=== PATIENT | female | born 1975 | race Caucasian/White ===

== ENCOUNTER 2018-11-15 19:15 | Inpatient (IN) ==
[2018-11-15 20:09] LABS: Basophils # 0.1 10*3/uL (0.0-0.2); Basophils % 0.4 % (0.0-0.8); Eosinophils # 0.1 10*3/uL (0.0-0.87); Eosinophils % 0.7 % (0.00-10.9); Hematocrit 34.2 VOL% (35.7-47.0); Hemoglobin 11.5 GM/DL (12.0-16.0); Immature Granulocytes % 0.7 %; Lymphocytes # 0.5 10*3/uL (1.4-4.0); Lymphocytes % 3.3 % (21.3-54.2); Mean Corpuscular HGB Conc 33.6 GM/DL (32-36); Mean Corpuscular Hemoglobin 31 PG (27-34); Mean Corpuscular Volume 93.2 FL (87-102); Mean Platelet Volume 10.1 FL (9.6-12.0); Monocytes # 0.7 10*3/uL (0.11-0.8); Monocytes % 4.9 % (1.7-12.7); Neutrophils # 13.3 10*3/uL (1.4-7.4); Platelet Count 250 T/CUMM (130-400); Red Blood Count 3.67 MC/CUMM (3.8-5.5); Red Cell Distribution Width 14.3 % (9.3-17.3); White Blood Count 14.8 T/CUMM (4-12)
[2018-11-15 20:17] LABS: Apearance,Urine CLOUDY (Clear); Bacteria,Urine Many /HPF (Few); Bilirubin,Urine Negative (Negative); Blood, Urine Moderate mg/dL (Negative); Glucose,Urine (UA) Negative (Negative); Ketones,Urine Negative (Negative); Mucus,Urine Few /LPF (Occasional); Nitrite,Urine Negative (Negative); Protein,Urine 100 MG/DL; RBC,Urine 67 /HPF (0-4); Urine Color Yellow (Yellow); Urine Specific Gravity 1.012 (1.001-1.035); Urine Urobilinogen < 2.0 EU/DL (0.2-1.0); WBC,Urine 1071 /HPF (0-6)
[2018-11-15 20:27] LABS: Albumin 3.3 G/DL (3.4-5.0); Bilirubin,Total 0.4 MG/DL (0.2-1.0); Osmolality,Calculated 270.1 MOS/KG (273-304); Potassium 3.4 MMOL/L (3.5-5.1); Total Protein 7.4 G/DL (6.4-8.3)
[2018-11-15] MEDS ORDERED: VANCOMYCIN INJ 1,000 MG in SODIUM CHLORIDE 0.9% 250 ML IV STA (20:40)
[2018-11-15] MEDS ORDERED: CEFEPIME 2,000 MG in SODIUM CHLORIDE 0.9% 100 ML IV STA (20:40)
[2018-11-15] MEDS ORDERED: KETOROLAC 30 MG/1 ML VIAL IV STA (20:40)
[2018-11-15] MEDS ORDERED: SODIUM CHLORIDE 0.9% 1,000 ML IV STA ×2 (20:41)
[2018-11-15] MEDS ORDERED: CEFEPIME 2,000 MG VIAL ONE (20:44)
[2018-11-15] MEDS ORDERED: ONDANSETRON 4 MG/2 ML VIAL IV PRN (22:04)
[2018-11-16] MEDS: SODIUM CHLORIDE 0.9% 1,000 ML IV SCH ×2 (01:26→09:58)
[2018-11-16] MEDS ORDERED: SODIUM CHLORIDE 0.9% 500 ML IV ONE (04:16)
[2018-11-16 06:47] LABS: Basophils % 0.3 % (0.0-0.8); Eosinophils # 0.1 10*3/uL (0.0-0.87); Eosinophils % 1.2 % (0.00-10.9); Hematocrit 28.2 VOL% (35.7-47.0); Hemoglobin 9.1 GM/DL (12.0-16.0); Immature Granulocytes % 1.1 %; Immature Granulocytes Absolute 0.13 #; Lymphocytes # 1.1 10*3/uL (1.4-4.0); Lymphocytes % 9.4 % (21.3-54.2); Mean Corpuscular HGB Conc 32.3 GM/DL (32-36); Mean Corpuscular Hemoglobin 31 PG (27-34); Mean Corpuscular Volume 95.6 FL (87-102); Mean Platelet Volume 10.1 FL (9.6-12.0); Monocytes # 0.5 10*3/uL (0.11-0.8); Platelet Count 173 T/CUMM (130-400); Red Blood Count 2.95 MC/CUMM (3.8-5.5); Red Cell Distribution Width 14.4 % (9.3-17.3)
[2018-11-16 07:28] LABS: Albumin 2.4 G/DL (3.4-5.0); Bilirubin,Total 0.8 MG/DL (0.2-1.0); Calcium 7.4 MG/DL (8.5-10.1); Potassium 3.3 MMOL/L (3.5-5.1); Total Protein 5.4 G/DL (6.4-8.3)
[2018-11-16] MEDS ORDERED: POTASSIUM CHLORIDE 20 MEQ TABLET PO ONE (08:22)
[2018-11-16] MEDS: MEROPENEM 1,000 MG in SODIUM CHLORIDE 0.9% 100 ML IV SCH ×2 (08:56→20:25)
[2018-11-16] MEDS: PANTOPRAZOLE 40 MG TABLET PO SCH (08:57)
[2018-11-16] MEDS: POTASSIUM CHLORIDE INJ 20 MEQ in LACTATED RINGERS 1,000 ML IV SCH ×2 (09:55→20:24)
[2018-11-16] MEDS: LUBIPROSTONE 24 MCG CAPSULE PO SCH (16:32)
[2018-11-16] MEDS: ACETAMINOPHEN 500 MG TABLET PO PRN (17:14)
[2018-11-17] MEDS: ACETAMINOPHEN 500 MG TABLET PO PRN ×2 (02:02→17:46)
[2018-11-17] MEDS ORDERED: IBUPROFEN 600 MG TABLET PO PRN (03:20)
[2018-11-17] MEDS: POTASSIUM CHLORIDE INJ 20 MEQ in LACTATED RINGERS 1,000 ML IV SCH ×3 (03:37→17:47)
[2018-11-17 04:36] LABS: Basophils % 0.2 % (0.0-0.8); Eosinophils # 0.1 10*3/uL (0.0-0.87); Eosinophils % 1.9 % (0.00-10.9); Hematocrit 24.8 VOL% (35.7-47.0); Hemoglobin 8.2 GM/DL (12.0-16.0); Immature Granulocytes % 0.5 %; Immature Granulocytes Absolute 0.03 #; Lymphocytes # 0.5 10*3/uL (1.4-4.0); Lymphocytes % 7.5 % (21.3-54.2); Mean Corpuscular HGB Conc 33.1 GM/DL (32-36); Mean Corpuscular Hemoglobin 31 PG (27-34); Mean Corpuscular Volume 93.9 FL (87-102); Mean Platelet Volume 10.8 FL (9.6-12.0); Monocytes # 0.1 10*3/uL (0.11-0.8); Monocytes % 1.6 % (1.7-12.7); Neutrophils # 5.5 10*3/uL (1.4-7.4); Neutrophils % 88.3 % (38.7-73.9); Platelet Count 158 T/CUMM (130-400); Red Blood Count 2.64 MC/CUMM (3.8-5.5); Red Cell Distribution Width 14.6 % (9.3-17.3); White Blood Count 6.2 T/CUMM (4-12)
[2018-11-17 05:00] LABS: Calcium 7.9 MG/DL (8.5-10.1); Osmolality,Calculated 281.4 MOS/KG (273-304); Potassium 4.3 MMOL/L (3.5-5.1)
[2018-11-17 06:29] LABS: Band Neutrophils 1 % (0-10); Eosinophils 2 % (0-10); Lymphocytes 13 % (20-55); Segmented Neutrophils 83 % (50-85); Total Cells Counted 100
[2018-11-17 06:30] LABS: Microcytosis Slight; Ovalocytes 1+; Platelet Estimate Normal
[2018-11-17] MEDS ORDERED: MAGNESIUM SULF RIDER 4 GM in PREMIX 1 EACH IV ONE (07:45)
[2018-11-17] MEDS: PANTOPRAZOLE 40 MG TABLET PO SCH (08:53)
[2018-11-17] MEDS: LUBIPROSTONE 24 MCG CAPSULE PO SCH (09:00)
[2018-11-17] MEDS ORDERED: VANCOMYCIN INJ 750 MG in SODIUM CHLORIDE 0.9% 250 ML IV SCH (09:00)
[2018-11-17] MEDS: MEROPENEM 1,000 MG in SODIUM CHLORIDE 0.9% 100 ML IV SCH ×2 (10:17→20:17)
[2018-11-17] MEDS: SODIUM BICARB INJ 150 MEQ in STERILE WATER INJ 850 ML IV SCH ×2 (11:54→17:17)
[2018-11-17] MEDS ORDERED: cefTRIAXone 2,000 MG in SYRINGE 1 EACH IV SCH (12:00)
[2018-11-17] MEDS ORDERED: SODIUM BICARB INJ 150 MEQ in STERILE WATER INJ 850 ML IV SCH (17:15)
[2018-11-17] MEDS ORDERED: IBUPROFEN 600 MG TABLET PO ONE (20:05)
[2018-11-17] MEDS ORDERED: ACETAMINOPHEN 500 MG TABLET PO SCH (23:00)
[2018-11-17] MEDS: ACETAMINOPHEN 500 MG TABLET PO SCH (23:37)
[2018-11-18] MEDS: POTASSIUM CHLORIDE INJ 20 MEQ in LACTATED RINGERS 1,000 ML IV SCH ×5 (05:23→21:25)
[2018-11-18] MEDS: ACETAMINOPHEN 500 MG TABLET PO SCH ×3 (05:44→17:04)
[2018-11-18 06:14] LABS: Basophils % 0.3 % (0.0-0.8); Eosinophils # 0.3 10*3/uL (0.0-0.87); Eosinophils % 3.3 % (0.00-10.9); Hematocrit 24.1 VOL% (35.7-47.0); Hemoglobin 8.1 GM/DL (12.0-16.0); Immature Granulocytes % 0.6 %; Immature Granulocytes Absolute 0.05 #; Lymphocytes # 1.2 10*3/uL (1.4-4.0); Lymphocytes % 15.2 % (21.3-54.2); Mean Corpuscular HGB Conc 33.6 GM/DL (32-36); Mean Corpuscular Hemoglobin 31 PG (27-34); Mean Platelet Volume 11.3 FL (9.6-12.0); Monocytes # 0.3 10*3/uL (0.11-0.8); Monocytes % 4.3 % (1.7-12.7); Neutrophils # 6.1 10*3/uL (1.4-7.4); Neutrophils % 76.3 % (38.7-73.9); Platelet Count 121 T/CUMM (130-400); Red Blood Count 2.62 MC/CUMM (3.8-5.5); Red Cell Distribution Width 14.6 % (9.3-17.3)
[2018-11-18 06:39] LABS: Albumin 1.8 G/DL (3.4-5.0); Bilirubin,Total 0.5 MG/DL (0.2-1.0); Calcium 7.7 MG/DL (8.5-10.1); Potassium 3.9 MMOL/L (3.5-5.1); Total Protein 4.9 G/DL (6.4-8.3)
[2018-11-18] MEDS ORDERED: COSYNTROPIN 0.25 MG VIAL IV ONE (08:00)
[2018-11-18] MEDS: MEROPENEM 1,000 MG in SODIUM CHLORIDE 0.9% 100 ML IV SCH ×2 (08:19→21:29)
[2018-11-18] MEDS ORDERED: fentaNYL 100 MCG/2 ML VIAL IV ONE (09:10)
[2018-11-18] MEDS ORDERED: MIDAZOLAM 2 MG/2 ML VIAL IV ONE (09:10)
[2018-11-18] MEDS: LUBIPROSTONE 24 MCG CAPSULE PO SCH (11:44)
[2018-11-18] MEDS: PANTOPRAZOLE 40 MG TABLET PO SCH (11:44)
[2018-11-18] MEDS ORDERED: DIAZEPAM 5 MG TABLET PO ONE (12:00)
[2018-11-18] MEDS ORDERED: MIDAZOLAM 2 MG/2 ML VIAL ONE (13:12)
[2018-11-18] MEDS ORDERED: fentaNYL 100 MCG/2 ML VIAL ONE (13:12)
[2018-11-19] MEDS: ACETAMINOPHEN 500 MG TABLET PO SCH ×4 (01:06→17:17)
[2018-11-19 05:05] LABS: Basophils % 0.3 % (0.0-0.8); Eosinophils # 0.2 10*3/uL (0.0-0.87); Hematocrit 23.4 VOL% (35.7-47.0); Hemoglobin 7.8 GM/DL (12.0-16.0); Immature Granulocytes % 0.5 %; Immature Granulocytes Absolute 0.04 #; Lymphocytes # 1.2 10*3/uL (1.4-4.0); Lymphocytes % 15.1 % (21.3-54.2); Mean Corpuscular HGB Conc 33.3 GM/DL (32-36); Mean Corpuscular Hemoglobin 31 PG (27-34); Mean Corpuscular Volume 92.1 FL (87-102); Mean Platelet Volume 11.4 FL (9.6-12.0); Monocytes # 0.6 10*3/uL (0.11-0.8); Monocytes % 7.7 % (1.7-12.7); Neutrophils # 5.8 10*3/uL (1.4-7.4); Neutrophils % 74.4 % (38.7-73.9); Platelet Count 129 T/CUMM (130-400); Red Blood Count 2.54 MC/CUMM (3.8-5.5); Red Cell Distribution Width 15.1 % (9.3-17.3); White Blood Count 7.8 T/CUMM (4-12)
[2018-11-19] MEDS: POTASSIUM CHLORIDE INJ 20 MEQ in LACTATED RINGERS 1,000 ML IV SCH ×3 (05:17→17:17)
[2018-11-19 05:22] LABS: Calcium 7.5 MG/DL (8.5-10.1)
[2018-11-19 05:32] LABS: Eosinophils 4 % (0-10); Hypochromasia Slight; Lymphocytes 14 % (20-55); Nucleated Red Blood Cells 1 (0-5); Platelet Estimate Decreased; Segmented Neutrophils 72 % (50-85); Total Cells Counted 100
[2018-11-19] MEDS ORDERED: SODIUM CHLORIDE 0.9% 1,000 ML IV PRN (07:18)
[2018-11-19] MEDS: MEROPENEM 1,000 MG in SODIUM CHLORIDE 0.9% 100 ML IV SCH (08:38)
[2018-11-19] MEDS: cefTRIAXone 1,000 MG in SYRINGE 1 EACH IV SCH (09:24)
[2018-11-19] MEDS: valACYclovir 500 MG TABLET PO SCH ×2 (09:45→21:53)
[2018-11-19] MEDS: LUBIPROSTONE 24 MCG CAPSULE PO SCH (09:48)
[2018-11-19] MEDS: PANTOPRAZOLE 40 MG TABLET PO SCH (09:48)
[2018-11-19 12:14] LABS: % Iron Saturation 7.7 % (18-50); Ferritin 89.7 ng/ml (8-252)
[2018-11-19 16:52] LABS: Hematocrit 30.7 VOL% (35.7-47.0); Hemoglobin 10.1 GM/DL (12.0-16.0)
[2018-11-19 18:05] LABS: Folate 3.3 NG/ML (5.4-24.0)
[2018-11-20] MEDS: POTASSIUM CHLORIDE INJ 20 MEQ in LACTATED RINGERS 1,000 ML IV SCH ×2 (00:08→06:48)
[2018-11-20] MEDS: ACETAMINOPHEN 500 MG TABLET PO SCH ×6 (00:12→23:37)
[2018-11-20 08:08] LABS: Calcium 8.6 MG/DL (8.5-10.1); Osmolality,Calculated 276.5 MOS/KG (273-304); Potassium 4.7 MMOL/L (3.5-5.1)
[2018-11-20] MEDS ORDERED: MAGNESIUM SULF RIDER 4 GM in PREMIX 1 EACH IV ONE (09:00)
[2018-11-20] MEDS: cefTRIAXone 1,000 MG in SYRINGE 1 EACH IV SCH (09:07)
[2018-11-20] MEDS: FERROUS SULFATE 325 MG TABLET PO SCH ×2 (09:07→20:44)
[2018-11-20] MEDS: FOLIC ACID 1 MG TABLET PO SCH (09:07)
[2018-11-20] MEDS: PANTOPRAZOLE 40 MG TABLET PO SCH (09:09)
[2018-11-20] MEDS: LUBIPROSTONE 24 MCG CAPSULE PO SCH (09:09)
[2018-11-20] MEDS ORDERED: LACTATED RINGERS 1,000 ML IV SCH (10:30)
[2018-11-20] MEDS: DOCUSATE SODIUM 100 MG CAPSULE PO SCH (20:44)
[2018-11-21 05:48] LABS: Basophils % 0.6 % (0.0-0.8); Eosinophils # 0.3 10*3/uL (0.0-0.87); Eosinophils % 5.5 % (0.00-10.9); Hematocrit 31.8 VOL% (35.7-47.0); Hemoglobin 10.6 GM/DL (12.0-16.0); Immature Granulocytes % 0.5 %; Immature Granulocytes Absolute 0.03 #; Lymphocytes # 2.2 10*3/uL (1.4-4.0); Mean Corpuscular HGB Conc 33.3 GM/DL (32-36); Mean Corpuscular Hemoglobin 30 PG (27-34); Mean Corpuscular Volume 89.6 FL (87-102); Mean Platelet Volume 11.3 FL (9.6-12.0); Monocytes # 0.7 10*3/uL (0.11-0.8); Neutrophils # 2.9 10*3/uL (1.4-7.4); Neutrophils % 46.4 % (38.7-73.9); Platelet Count 165 T/CUMM (130-400); Red Blood Count 3.55 MC/CUMM (3.8-5.5); Red Cell Distribution Width 16.5 % (9.3-17.3); White Blood Count 6.2 T/CUMM (4-12)
[2018-11-21 06:06] LABS: Calcium 8.1 MG/DL (8.5-10.1); Osmolality,Calculated 278.3 MOS/KG (273-304); Potassium 3.7 MMOL/L (3.5-5.1)
[2018-11-21 06:12] LABS: Eosinophils 3 % (0-10); Hypochromasia 1+; Lymphocytes 24 % (20-55); Microcytosis 1+; Platelet Estimate Normal; Segmented Neutrophils 69 % (50-85); Total Cells Counted 100
[2018-11-21] MEDS: ACETAMINOPHEN 500 MG TABLET PO SCH (06:18)
[2018-11-21] MEDS: FOLIC ACID 1 MG TABLET PO SCH (08:45)
[2018-11-21] MEDS: FERROUS SULFATE 325 MG TABLET PO SCH (08:45)
[2018-11-21] MEDS: LUBIPROSTONE 24 MCG CAPSULE PO SCH (08:47)
[2018-11-21] MEDS: cefTRIAXone 1,000 MG in SYRINGE 1 EACH IV SCH (08:47)
[2018-11-21] MEDS: DOCUSATE SODIUM 100 MG CAPSULE PO SCH (08:47)
[2018-11-21] MEDS: PANTOPRAZOLE 40 MG TABLET PO SCH (08:47)
[2018-11-21 09:55] VITALS: BP 96/64
== END 2018-11-21 11:06 | disposition home or self-care (01) | DRG 720 ==
LOC: N.ED 19:15 → N.EDINP 22:04 → N.5E 11-16 00:32
PROVIDERS: ADMIT Internal Medicine; ATTEND Internal Medicine